=== PATIENT | female | born 1975 | race Caucasian/White ===

== ENCOUNTER 2020-12-28 11:40 | Emergency (ER) | payer MEDICAID ==
[~2020-12-28] VITALS: Ht 182.9 cm; Wt 136.1 kg
[2020-12-28] MEDS ORDERED: ASA81BEC PO (11:59)
[2020-12-28] MEDS ORDERED: NORVASC10 MG PO ×2 (11:59→12:14)
[2020-12-28] MEDS ORDERED: DEXILANT60 MG PO ×2 (12:00→12:14)
[2020-12-28] MEDS ORDERED: FUROSEMIDE 20 M20 MG PO (12:00)
[2020-12-28] MEDS ORDERED: LIPITOR40 MG PO ×2 (12:00→12:14)
[2020-12-28] MEDS ORDERED: FLEXERIL PO ×2 (12:00→12:14)
[2020-12-28] MEDS ORDERED: PLAVIX 75 MG TA75 MG PO ×2 (12:00→12:14)
[2020-12-28] MEDS ORDERED: HUMALOG100 UNIT/1 SUBQ ×2 (12:00→12:22)
[2020-12-28] MEDS ORDERED: LISINOPRIL20 MG PO (12:01)
[2020-12-28] MEDS ORDERED: NORCO7.5 PO (12:01)
[2020-12-28] MEDS ORDERED: REGLAN 10 MG TA10 MG PO (12:01)
[2020-12-28] MEDS ORDERED: LORAZEPAM 1 MG T1 MG PO (12:01)
[2020-12-28] MEDS ORDERED: TRESIBA FL200 UNIT/1 SUBQ ×3 (12:02→14:24)
[2020-12-28] MEDS ORDERED: TOPROL XL50 MG (12:02)
[2020-12-28] MEDS ORDERED: TOPROL XL50 MG PO (12:14)
[2020-12-28] MEDS ORDERED: LASIX 40 MG TAB40 MG PO (12:14)
[2020-12-28] MEDS ORDERED: ZESTRIL40 MG PO (12:14)
[2020-12-28] MEDS ORDERED: HYDROCODON-ACE1 EAC7 PO (13:07)
[2020-12-28 13:24] VITALS: BP 180/98
== END 2020-12-28 13:26 | disposition home or self-care (01) ==
LOC: M.ERS 11:40
DX: E11.65 Type 2 diabetes mellitus with hyperglycemia (principal); I10 Essential (primary) hypertension; R23.8 Other skin changes; L84 Corns and callosities; Z76.0 Encounter for issue of repeat prescription; I25.10 Atherosclerotic heart disease of native coronary artery without angina pectoris; I25.2 Old myocardial infarction; F41.9 Anxiety disorder, unspecified; K21.9 Gastro-esophageal reflux disease without esophagitis; Z89.422 Acquired absence of other left toe(s); Z89.421 Acquired absence of other right toe(s); E11.22 Type 2 diabetes mellitus with diabetic chronic kidney disease; I12.9 Hypertensive chronic kidney disease with stage 1 through stage 4 chronic kidney disease, or unspecified chronic kidney disease; N18.9 Chronic kidney disease, unspecified; Z79.899 Other long term (current) drug therapy; Z79.82 Long term (current) use of aspirin; Z79.4 Long term (current) use of insulin; Z88.8 Allergy status to other drugs, medicaments and biological substances; Z88.6 Allergy status to analgesic agent